=== PATIENT | male | born 1995 ===

== ENCOUNTER 2018-01-16 09:30 | Emergency (ER) | payer OTHER ==
[2018-01-16] MEDS ORDERED: HYDROmorphone 0.5 mg/0.5 ml ISec IM STA (10:19)
[2018-01-16 10:23] VITALS: RESP 20
[2018-01-16] MEDS ORDERED: HYDROmorphone 0.5 mg/0.5 ml ISec ONE (10:28)
--- NOTE | 2018-01-16 10:56 | RAD ---
PROCEDURE: Radiographs of the Left Shoulder HISTORY: Dislocation COMPARISON: No prior. FINDINGS: BONES: There is no acute displaced fracture. Bone mineralization is normal. JOINTS: There is anterior-inferior dislocation of the glenohumeral joint. The acromioclavicular joint is normal. SOFT TISSUES: Normal. OTHER FINDINGS: None. IMPRESSION: Anterior-inferior dislocation of the glenohumeral joint.
--- NOTE | 2018-01-16 11:04 | C.PDOC ---
History Of Present Illness 22-year-old male, presents to the emergency department with complaints of left shoulder pain and believe his shoudler is dislocated. Patient states he was lifting heavy object at work when he felt his shoulder pop out. Patient has history of shoulder dislocation. Denies nausea/vomiting, fever, numbness/ weakness, back pain, neck pain or any other associated symptoms. No other complaints at this time. Time Seen by Provider: 01/16/18 09:49 Chief Complaint (Nursing): Upper Extremity Problem/Injury History Per: Patient History/Exam Limitations: no limitations Past Medical History Reviewed: Historical Data, Nursing Documentation, Vital Signs Vital Signs: Last Vital Signs Temp 98 F 01/16/18 11:11 Pulse 81 01/16/18 11:11 Resp 20 01/16/18 11:11 BP 133/83 01/16/18 11:11 Pulse Ox 99 01/16/18 17:58 Family History: States: No Known Family Hx - Social History Hx Alcohol Use: No Hx Substance Use: No - Immunization History Hx Tetanus Toxoid Vaccination: No Hx Influenza Vaccination: No Hx Pneumococcal Vaccination: No Review Of Systems Respiratory: Negative for: Shortness of Breath Gastrointestinal: Negative for: Vomiting Musculoskeletal: Positive for: Shoulder Pain Skin: Negative for: Rash Neurological: Negative for: Weakness, Numbness Physical Exam - Physical Exam Appears: Non-toxic, No Acute Distress Skin: Normal Color, Warm, Dry, No Rash Head: Normacephalic Eye(s): bilateral: PERRL Nose: Normal, No Flaring, No Discharge Oral Mucosa: Moist Lips: Normal Appearing Neck: Normal ROM Chest: Symmetrical Cardiovascular: Rhythm Regular, No Murmur Respiratory: Normal Breath Sounds, No Accessory Muscle Use Gastrointestinal/Abdominal: Soft, No Tenderness Extremity: Capillary Refill (<2 seconds), Deformity (Left anterior shoulder. limited range of motion) Pulses: Left Brachial: Normal, Right Brachial: Normal Neurological/Psych: Oriented x3, Normal Speech ED Course And Treatment O2 Sat by Pulse Oximetry: 99 Medical Decision Making Medical Decision Making: PROCEDURE: REDUCTION Performed by the emergency provider Consent: Informed consent, after discussion of the risks, benefits, and alternatives to the procedure, was obtained. Timeout: A timeout to verify the correct patient, procedure, and site was performed immediately prior to the procedure. Indication: Deformity, dislocation Location: Shoulder Pre-procedure neurovascular status: Distal neurovascular status intact. Technique: arm was externally rotated with relief of anterior shoulder dislocation Post-procedure neurovascular status: Distal neurovascular status remains intact. Confirmation: Post-reduction films *confirm reduction. See post-procedure X-Ray interpretation. Post-procedure: Patient tolerated the procedure well with no immediate complications. The reduction site was immobilized with a sling. Patient instructed to F/U outpatient with ortho Disposition Counseled Patient/Family Regarding: Studies Performed, Diagnosis, Need For Followup - Disposition Referrals: Eligio Pedro III, MD [Staff Provider] - [facility] [Outside] Disposition: HOME/ ROUTINE Disposition Time: 11:00 Condition: IMPROVED Additional Instructions: follow up with orthopaedic in 2 days call to make an appointment take pain medication as needed return to ER if symptoms worsens or progress Prescriptions: Naproxen [Naprosyn] 500 mg PO BID PRN #16 tab PRN Reason: Pain, Moderate (4-7) Instructions: Shoulder Dislocation Forms: Gen Discharge Inst Ugandan, [email or web address] (Ugandan) Print Language: ARABIC - Clinical Impression Clinical Impression: Shoulder dislocation - Scribe Statement The provider has reviewed the documentation as recorded by the Scribe (Kamryn Knight) All medical record entries made by the Scribe were at my direction and personally dictated by me. I have reviewed the chart and agree that the record accurately reflects my personal performance of the history, physical exam, medical decision making, and the department course for this patient. I have also personally directed, reviewed, and agree with the discharge instructions and disposition.
[2018-01-16 11:12] VITALS: BP 133/83; PULSE 81; TEMP 98
--- NOTE | 2018-01-16 11:44 | RAD ---
PROCEDURE: Left shoulder, limited portable HISTORY: post reduction COMPARISON: 01/16/2018 at 10:07 a.m. TECHNIQUE: Single AP portable view FINDINGS: Status post successful close reduction left shoulder. No fracture identified. Acromioclavicular articulation intact. IMPRESSION: Successful close reduction left glenohumeral dislocation.
[2018-01-16 15:02] VITALS: O2SAT 99
== END 2018-01-16 11:21 | disposition home or self-care (01) ==
LOC: C.ER 09:30
DX: S43.005A Unspecified dislocation of left shoulder joint, initial encounter (principal); X50.0XXA Overexertion from strenuous movement or load, initial encounter; Y93.89 Activity, other specified; Y92.89 Other specified places as the place of occurrence of the external cause
CPT/HCPCS: 23650; 73020; 73030; 96372; 99285; J1170